=== PATIENT | female | born 1985 | race Two or more races ===

== ENCOUNTER → 2021-02-18 06:43 | Outpatient (CLI) | payer OTHER ==
[~2021-02-18 06:43] MED LIST: PRENA1 TRUE CO1 EACH PO
== END | disposition home or self-care (01) ==
LOC: LAB 06:43
PROVIDERS: ATTEND Obstetrics & Gynecology
DX: Z34.00 Encounter for supervision of normal first pregnancy, unspecified trimester (principal); Z31.430 Encounter of female for testing for genetic disease carrier status for procreative management; Z31.5 Encounter for procreative genetic counseling; O09.892 Supervision of other high risk pregnancies, second trimester

== ENCOUNTER → 2021-03-17 09:14 | Outpatient (CLI) | payer OTHER | END | disposition home or self-care (01) | LOC: LAB 09:14 | PROVIDERS: ATTEND Obstetrics & Gynecology | DX: Z31.430 Encounter of female for testing for genetic disease carrier status for procreative management (principal); Z31.5 Encounter for procreative genetic counseling; O09.892 Supervision of other high risk pregnancies, second trimester ==

== ENCOUNTER 2021-03-19 09:08 | Emergency (ER) | payer OTHER ==
[~2021-03-19] VITALS: Ht 162.6 cm; Wt 81.6 kg
[2021-03-19] MEDS ORDERED: PRENA1 TRUE CO1 EACH PO (09:16)
== END 2021-03-19 11:30 | disposition home or self-care (01) ==
LOC: ER 09:08
DX: O26.842 Uterine size-date discrepancy, second trimester (principal); O26.852 Spotting complicating pregnancy, second trimester; O26.892 Other specified pregnancy related conditions, second trimester; O34.12 Maternal care for benign tumor of corpus uteri, second trimester; Z3A.16 16 weeks gestation of pregnancy

== ENCOUNTER → 2021-04-28 | Outpatient (CLI) | payer OTHER | END | disposition home or self-care (01) | LOC: PRENATAL 08:00 | PROVIDERS: ATTEND Obstetrics & Gynecology Maternal & Fetal Medicine | DX: O35.0XX1 Maternal care for (suspected) central nervous system malformation in fetus, fetus 1 (principal); O35.3XX1 Maternal care for (suspected) damage to fetus from viral disease in mother, fetus 1; O98.512 Other viral diseases complicating pregnancy, second trimester; O34.12 Maternal care for benign tumor of corpus uteri, second trimester; O09.512 Supervision of elderly primigravida, second trimester; Z36.89 Encounter for other specified antenatal screening; Z3A.21 21 weeks gestation of pregnancy ==

== ENCOUNTER 2023-05-16 13:38 | Emergency (ER) | payer OTHER ==
[~2023-05-16] VITALS: Ht 167.6 cm; Wt 86.6 kg
== END 2023-05-16 16:58 | disposition home or self-care (01) ==
LOC: ER 13:38
DX: U07.1 COVID-19 (principal)

== ENCOUNTER 2025-01-10 15:51 | Emergency (ER) | payer OTHER ==
[~2025-01-10] VITALS: Ht 165.1 cm; Wt 86.6 kg
[2025-01-10 16:23] VITALS: BP 132/83; O2SAT 99
[2025-01-10] MEDS ORDERED: CETIRIZINE HCL 5MG/5ML BLIST.PACK PO ONE (17:44)
[2025-01-10] MEDS ORDERED: CETIRIZINE HCL 5 MG/5 ML ML PO ONE (17:45)
[2025-01-10 18:05] LABS: HEMATOCRIT 34.1 % (36.0-45.00); HEMOGLOBIN 11.1 g/dL (12.0-15.00); MEAN CELL VOLUME 79.7 fL (80.00-100.00); MEAN CORPUSCULAR HEMOGLOBIN 25.9 pg (27.00-32.0); MEAN CORPUSCULAR HGB CONC 32.5 g/dl (32.0-36.0); PLATELET COUNT 330 K/uL (150-450); RED BLOOD COUNT 4.28 M/uL (4.00-6.00); RED CELL DISTRIBUTION WIDTH 14.6 % (11.5-14.5)
[2025-01-10 18:19] LABS: INFLUENZA A AG NEGATIVE (NEGATIVE); INFLUENZA B AG NEGATIVE (NEGATIVE)
[2025-01-10 18:52] LABS: COVID-19 AG NEGATIVE (NEGATIVE)
[2025-01-10] MEDS ORDERED: ZYRTEC10 MG PO (19:04)
== END 2025-01-10 19:25 | disposition home or self-care (01) ==
LOC: ER 15:52
PROVIDERS: General Practice
DX: J06.9 Acute upper respiratory infection, unspecified (principal); Z20.822 Contact with and (suspected) exposure to COVID-19